=== PATIENT | female | born 1945 | race Caucasian/White ===

== ENCOUNTER → 2024-01-26 07:47 | Outpatient (REF) | payer MEDICARE, OTHER, SELFPAY ==
[2024-01-26 10:23] LABS: ALT (SGPT) 22 U/L (0-35); AST (SGOT) 31 U/L (14-36); Albumin 4.1 g/dl (3.5-5.0); Alkaline Phosphatase 89 U/L (38-126); Blood Urea Nitrogen 22 mg/dl (7-17); Calcium 9.5 mg/dl (8.4-10.2); Carbon Dioxide 29 mmol/L (22-30); Chloride 104 mmol/L (98-107); Glucose 107 mg/dl (70-99); HDL Cholesterol 47 mg/dl; LDL Cholesterol, Calculated 100 mg/dl; Potassium 4.2 mmol/L (3.5-5.1); Sodium 139 mmol/L (135-145); Total Bilirubin 0.6 mg/dl (0.2-1.3); Total Cholesterol 170 mg/dl (50-199); Total Protein 7.1 g/dl (6.3-8.2); Triglyceride 118 mg/dl (10-149); Very Low Density Lipoprotein 23 mg/dl (0-30); eGFR > 60.00
[2024-01-26 11:59] LABS: Glycohemoglobin (HgbA1c) 5.7 % (4.0-5.6)
== END ==
LOC: HWLAB 07:47
PROVIDERS: ATTENDING PHYSICIAN Family Medicine
DX: E78.00 Pure hypercholesterolemia, unspecified (principal); R73.01 Impaired fasting glucose; Z79.899 Other long term (current) drug therapy
CPT/HCPCS: 36415; 80053; 80061; 83036

== ENCOUNTER → 2024-02-21 07:38 | Outpatient (REF) | payer MEDICARE, OTHER, SELFPAY | LOC: EMG 07:38 | PROVIDERS: ATTENDING PHYSICIAN Family Medicine; OTHER PHYSICIAN Chiropractor Sports Physician | DX: R20.0 Anesthesia of skin (principal) | CPT/HCPCS: 95886; 95910 ==

== ENCOUNTER → 2024-06-11 11:21 | Outpatient (REF) | payer MEDICARE, OTHER, SELFPAY | LOC: HWWDC 11:21 | PROVIDERS: ATTENDING PHYSICIAN Family Medicine | DX: Z12.31 Encounter for screening mammogram for malignant neoplasm of breast (principal) | CPT/HCPCS: 77063; 77067 ==

== ENCOUNTER 2024-09-12 10:39 | Emergency (ER) | payer OTHER, SELFPAY ==
[2024-09-12 10:56] VITALS: BP 113/90
[2024-09-12 11:13] LABS: % Basophils 0.7 % (0-2); % Eosinophils 5.3 % (0-6); % Immature Granulocytes 0.3 % (0-0.5); % Lymphocytes 41.2 % (20.5-51.1); % Monocytes 7.7 % (1.7-9.3); % Neutrophils 44.8 % (42.2-75.2); Absolute Eosinophils 0.3 10^3/uL (0-0.7); Absolute Lymphocytes 2.4 10^3/uL (1.2-3.4); Absolute Monocytes 0.5 10^3/uL (0.1-0.6); Absolute Neutrophils 2.6 10^3/uL (1.4-6.5); Hematocrit 40.9 % (37.0-47.0); Hemoglobin 13.1 g/dL (12.0-16.0); Mean Corpuscular Hgb 27.6 pg (27.0-31.0); Mean Corpuscular Volume 86.3 fL (81.0-99.0); Nucleated Red Blood Cells % 0 %; Platelet Count 235 10^3/uL (130-400); Red Blood Cell Count 4.74 10^6/uL (4.20-5.40); Red Cell Dist. Width 13.2 % (11.5-14.5); White Blood Cell Count 5.9 10^3/uL (4.8-10.8)
[2024-09-12 11:24] LABS: ALT (SGPT) 25 U/L (0-35); AST (SGOT) 32 U/L (14-36); Albumin 4.5 g/dl (3.5-5.0); Alkaline Phosphatase 108 U/L (38-126); Blood Urea Nitrogen 15 mg/dl (7-17); Calcium 9.4 mg/dl (8.4-10.2); Carbon Dioxide 30 mmol/L (22-30); Chloride 102 mmol/L (98-107); Glucose 102 mg/dl (70-99); Potassium 4.7 mmol/L (3.5-5.1); Sodium 139 mmol/L (135-145); Total Bilirubin 0.6 mg/dl (0.2-1.3); Total Protein 7.6 g/dl (6.3-8.2); eGFR > 60.00
--- NOTE | 2024-09-12 11:32 | ED.GENMED ---
History of Present Illness
<DI Mohan - Last Filed: 09/12/24 17:36>
General
Chief Complaint: Headache
Source: patient and spouse
Exam Limitations: none
Time Seen by Provider: 09/12/24 11:25
Nursing documentation reviewed up to this point in time: agreed with
History of Present Illness
History of Present Illness:
Patient is a 78-year-old female being sent from primary care provider with concerns for possible TIA symptoms. Patient reports she had dental work done over a week ago and after procedure started to have tingling the left side of her scalp it
seemed intermittent initially however for the past several days it has been constant. She does have a headache with this. She saw her family doctor today and was sent to the ER for further evaluation. She does complain of very intermittent mild
left hand tingling as well. She denies any upper or lower extremity weakness. She denies any visual deficit. She feels sometimes that her balance seems little off. She reports she has balance issues normally and they seem a little bit worse.
She denies any chest pain shortness of breath. at bedside noted the patient has slight tremor to her hand the other day while drinking coffee.
Patient is on blood thinners. Patient denies any rash joint pain recent illness fever chills.
Past History
<DI Mohan - Last Filed: 09/12/24 17:36>
Past History
ED Past Medical History: Arrthythmia (palpitations on metoprolol), GERD, HTN and Other (gingivitis on Doxy BID)
Social History
Tobacco: Non-smoker
Alcohol: None
Drug: None
Personal:
Living: with family
Review of Systems
<ID Mohan - Last Filed: 09/12/24 17:36>
Review of Systems
Allergies reviewed?: Yes
All Other Systems: ROS reviewed and negative except as documented in HPI and ROS
Constitutional: Reports no symptoms; Denies fever, fatigue or chills
Respiratory: Reports no symptoms
Cardiac: Reports no symptoms
ABD/GI: Reports no symptoms
Musculoskeletal: Reports no symptoms
Skin: Reports no symptoms
Neurological: Reports other (paresthesia to left scalp )
Psychiatric: Reports no symptoms
Phy Exam
<DI Mohan - Last Filed: 09/12/24 17:36>
General Physical Exam
General Presentation: no apparent distress
General age: appears stated age
General Skin: warm and dry
General Habitus: normal
General Mental: alert
General Hydration: appears well hydrated
Eye Exam
Eye Exam: PERRL and EOMI
Eye Exam General: PERRL: bilateral and EOM intact: bilateral
Pupil Exam: Bilateral: round and reactive
Cardiovascular Exam
Cardiovascular Exam: regular rate/rhythm, no murmur and normal peripheral pulses
Pulmonary Exam
Pulmonary Exam: lungs clear and no respiratory distress
Neurological Exam
Neurological Exam: alert, oriented x3, no motor deficits, no sensory deficits, speech normal, normal gait and other (intact sensation to extremities , full strength throughout no facial droop, clear speech )
NIH Stroke Score
Level of Consciousness: 0 - Alert
LOC questions: 0-Answers both correctly
LOC Commands: 0-Performs both correctly
Best Gaze: 0-Normal
Visual Kelly: 0=Normal, no visual loss
Facial palsy: 0=Normal, symmetrical
Motor - Right Arm: 0=No drift 10 seconds
Motor - Left Arm: 0=No drift 10 seconds
Motor - Right Le-No drift 5 seconds
Motor - Left Le-No drift 5 seconds
Limb Ataxia: 0-Absent
Sensation: 0-Normal
Best Language: 0-No aphasia
Dysarthria: 0-Normal
Extinction and Inattention: 0-No abnormality
Total Score:: 0
Stan Coma Scale
Eye Opening: Spontaneous
Verbal Response: Oriented
Motor Response: Obeys Commands
GCS Total Score: 15
Musculoskeletal Exam
Musculoskeletal Exam: full ROM
Skin Exam
Skin Exam: normal color and warm/dry
Psychiatric Exam
Psychiatric Exam: normal mood/affect
Course
<DI Mohan - Last Filed: 09/12/24 17:36>
Orders/Labs/Results
Orders:
Orders
09/12/24 10:58
CT Head W/o Iv Contrast Urgent
Comment:
Reason For Exam: BAH with pins and needle feeling in head
09/12/24 11:03
Complete Blood Count/With Diff Urgent
Comprehensive Metabolic Panel Urgent
09/12/24 11:49
Electrocardiogram (*1) Stat
Reason for Study: Other
Other Reason for Exam: chest pain
EKG- Treatment ONCE
Abnormal Lab Results
09/12/24
11:03
MCHC 32.0 L g/dL
(33.0-37.0)
Glucose 102 H mg/dl
(70-99)
09/12/24 11:03
09/12/24 11:03
Vital Signs
Initial and Last Documented VS:
Initial Vital Signs
Temp Pulse Resp BP Pulse Ox
98.0 F 73 16 113/90 698
09/12/24 10:56 09/12/24 10:56 09/12/24 10:56 09/12/24 10:56 09/12/24 10:56
Last Documented Vital Signs
Temp Pulse Resp BP Pulse Ox
98.0 F 61 16 142/81 97
09/12/24 10:56 09/12/24 13:53 09/12/24 13:53 09/12/24 13:53 09/12/24 13:53
Paver Installer consulted with Physician
Paver Installer consulted with physician?: Yes
Name of Physician Consulted: DR Miller
<Montez Miller DO - Last Filed: 09/12/24 13:25>
Orders/Labs/Results
Orders:
Orders
09/12/24 10:58
CT Head W/o Iv Contrast Urgent
Comment:
Reason For Exam: BAH with pins and needle feeling in head
09/12/24 11:03
Complete Blood Count/With Diff Urgent
Comprehensive Metabolic Panel Urgent
09/12/24 11:49
Electrocardiogram (*1) Stat
Reason for Study: Other
Other Reason for Exam: chest pain
EKG- Treatment ONCE
Abnormal Lab Results
09/12/24
11:03
MCHC 32.0 L g/dL
(33.0-37.0)
Glucose 102 H mg/dl
(70-99)
09/12/24 11:03
09/12/24 11:03
Vital Signs
Initial and Last Documented VS:
Initial Vital Signs
Temp Pulse Resp BP Pulse Ox
98.0 F 73 16 113/90 698
09/12/24 10:56 09/12/24 10:56 09/12/24 10:56 09/12/24 10:56 09/12/24 10:56
Last Documented Vital Signs
Temp Pulse Resp BP Pulse Ox
98.0 F 61 16 142/81 97
09/12/24 10:56 09/12/24 13:53 09/12/24 13:53 09/12/24 13:53 09/12/24 13:53
<DI Mohan - Last Filed: 09/12/24 17:36>
MDM/Problems Addressed
Differential Diagnosis Includes:
Not limited to paresthesias less likely CVA
MDM/Problems Addressed:
Patient is document is a 78-year-old female who presents for days of paresthesias to the left side of her scalp only. She has mild paresthesias to her left hand. No other complaints of confusion, upper or lower extremity weakness. She however
denies any upper or lower extremity deficit or weakness. She c/o of mild headache. She has a history of some balance issues and thought her balance was slightly off however she is ambulatory with a steady gait ;NIH score of 0.
ct head neg , nml labs . d/c w/ ED attending who evaluated patient at bedside will DC on gabapentin for paresthesias but close outpatient follow-up with her neurologist. She has seen neurologist in the past.
<DI Mohan - Last Filed: 09/12/24 17:36>
*Radiology
Radiology exam reviewed: radiology read reviewed
*Pulse Oximetry
Patient hypoxic: no
*Critical Care Note
Total Time (30-74mins, 75-104mins- exclusive of procedures): Not Applicable
ED Attending Note
<DI Mohan - Last Filed: 09/12/24 17:36>
-
Portions of this chart may have been created with voice recognition software.� Occasional wrong word or��sound alike� substitutions may have occurred due to the inherent limitations of voice recognition software.
<Montez Miller DO - Last Filed: 09/12/24 13:25>
ED Attending Note
Patient seen and examined by attending physician: Yes
I performed the substantive portion of visit, reviewed & personally made and approve the management plan that is documented in note by myself or MIMI.: Yes
ED Attending Note:
I evaluated patient at bedside. The patient was able to walk without any significant difficulty. She has a normal neurologic examination. I see no evidence of shingles. She has had shingles in the past. She wants to try something for the
discomfort and paresthesias and we talked about trying gabapentin. Will start very low-dose of gabapentin and she states that she has seen Dr. Cintron, neurologist, locally and recommended that she follows up with him in the near future.
Discharge Plan
Departure
Patient Disposition: Home (Routine Discharge)
Date of Disposition: 09/12/24
Time of Disposition: 13:30
Patient with high blood pressure during this ER visit?: Yes
Condition: Fair
Covid-19: Not Applicable
Discharge Problem:
paresthesias
Instructions: BLOOD PRESSURE
Prescriptions:
New
gabapentin 100 mg capsule
100 mg PO TID Qty: 20 0RF
No Action
multivitamin with folic acid [Tab-A-Juan Carlos] 1 TABLET tablet
1 tab PO DAILY
fluticasone propionate 1 SPRAY spray,suspension
1 spray intranasal PRN PRN (Reason: CONGESTION)
cyanocobalamin (vitamin B-12) 1,000 MCG tablet
1,000 mcg PO DAILY
pantoprazole 40 MG tablet,delayed release (DR/EC)
20 mg PO DAILY
ibuprofen 200 MG tablet
2 - 3 mg PO Q6HPRN PRN (Reason: pain)
levocetirizine [Xyzal] 5 MG tablet
5 mg PO HS
red yeast rice 600 MG tablet
2 cap PO BID
bsitb-[id number]-czt-epa-fish oil-D3 [Dry Eye [place] Benefits] 1 EACH capsule
2 cap PO DAILY@1200
L.acidoph,paracasei,B.animalis 1 EACH capsule
1 ea PO DAILY
betamethasone-chondroitin (PF) [Klarity-B (betameth-chond)(PF)] 5.5 ML drops
1 drp BOTH EYES BID
Prebiotic
1 cap PO DAILY
Prevagen
1 tab PO DAILY
Referrals:
Latesha Wells MD [Family Provider] -
Activity Restrictions/Additional Instructions:
You were seen today for numbness tingling to the left scalp and hand. You have no neurological deficits on exam and your CAT scan was normal. You may take gabapentin for symptoms. as discussed however please follow-up with your neurologist.
Return if any worsening of symptoms. In Addition please continue to follow-up with your family doctor.
Interventions
Interventions:
*Risk Screen - Suicide Last Done: 09/12/24 10:56
*General Assessment Last Done: 09/12/24 11:28
*Neglect/Abuse Screening Last Done: 09/12/24 10:56
ED- Fall Risk Assessment Last Done: 09/12/24 13:53
*ED COVID-19 Vaccine History Last Done: 09/12/24 11:28
*Nursing Disposition Last Done: 09/12/24 13:53
ED- Neurological Assessment Last Done: 09/12/24 11:38
Discharge Date and Time
Discharge Date/Time: 09/12/24 13:54
Print Language: CANADIAN
[2024-09-12 12:21] VITALS: BP 145/78
[2024-09-12 13:53] VITALS: BP 142/81
== END 2024-09-12 13:54 | disposition home or self-care (01) ==
LOC: EMR 10:39
PROVIDERS: Student in an Organized Health Care Education/Training Program; EMERGENCY PHYSICIAN Emergency Medicine; FAMILY PHYSICIAN Family Medicine
DX: R20.2 Paresthesia of skin (principal); R51.9 Headache, unspecified; R00.2 Palpitations; K21.9 Gastro-esophageal reflux disease without esophagitis; I10 Essential (primary) hypertension
CPT/HCPCS: 99284; 70450; 80053; 85025; 93005

== ENCOUNTER → 2025-06-12 10:22 | Outpatient (REF) | payer OTHER, SELFPAY | LOC: HWWDC 10:22 | PROVIDERS: ATTENDING PHYSICIAN Family Medicine | DX: Z12.31 Encounter for screening mammogram for malignant neoplasm of breast (principal) | CPT/HCPCS: 77063; 77067 ==